=== PATIENT | female | born 1965 | race Caucasian/White ===

== ENCOUNTER 2018-07-20 10:24 | Emergency (ER) | payer MEDICAID, SELFPAY ==
--- NOTE | 2018-07-20 10:32 | DI.RAD_ITS ---
SYMPTOM/DIAGNOSIS: COUGH X 1 WEEK PA AND LATERAL CHEST: Comparison is made with 01 Apr 2014. The heart size is normal. The lungs appear clear. No infiltrate or effusion is seen. IMPRESSION: Negative chest x-ray.
[2018-07-20 10:35] VITALS: BP 154/83; PULSE 81; RESP 16; TEMP 37; O2SAT 99
[2018-07-20 10:39] VITALS: RESP 1
[2018-07-20] MEDS: Albuterol/Ipratropium 3 ML UPD VIAL UPD (10:39)
--- NOTE | 2018-07-20 10:40 | ED.GENADUL_ITS ---
Discharge Plan Disposition Patient Disposition: HOME Condition: Good Discharge Details Chief Complaint: RespSymp Clinical Impression: Cough, URI (upper respiratory infection) Primary Care Provider: Ying Villaseñor ED Provider: Jamie Shen Home Meds and New Rx's Prescriptions: New albuterol sulfate 90 mcg/actuation HFA aerosol inhaler 1 puff IH Q6H PRN (Reason: shortness of breath or wheezing) Qty: 8 RF: 0 benzonatate [Tessalon Perles] 100 mg capsule 100 mg PO TID PRN (Reason: cough) Qty: 20 RF: 0 prednisone 50 MG tablet 50 mg PO DAILY Qty: 5 RF: 0 No Action Mirena 1 EACH intrauterine device 1 ea Intrauterine ONCE Qty: 1 RF: 0 mometasone [Nasonex] 17 GM spray,non-aerosol 2 spry NS DAILY RF: 0 Discharge Instructions Instructions: Upper Respiratory Infection (ED), Acute Cough (ED) Additional Instructions: Please take the medication as directed. If you notice any worsening of your symptoms, or any new symptoms such as vomiting, diarrhea, fever, chills, shortness of breath, chest pain, numbness, weakness, or fainting , please return immediately to the emergency department for reevaluation. Please follow up with your primary care provider as soon as possible for reassessment and r eevaluation. As always, it was a pleasure participating in your medical care today. Referrals: Ying Villaseñor MD [Primary Care Provider] - Medical Decision Making This is a 53-year-old female with no significant past medical history who presents today for evaluation of cough for the last week. She has no productive sputum at this time. No fever or chills. She does feel slightly fatigued though. No history of significant tobacco use. Physical exam demonstrates no wheezes or rhonchi. With the patient's persisting cough for the last week we will get a chest x-ray to rule out any focal pneumonia. We will give a breathing treatment to see if this improves her symptoms. With reassuring vital signs, no other significant abnormalities on exam I feel that she would be a good candidate for home therapy. I feel her symptoms are most likely secondary to bronchitis from a viral upper respiratory infection. Currently there are no signs or symptoms that clinically correlate with a acute cardiac etiology, aortic dissection, pulmonary embolism, or severe respiratory compromise. 11:19 AM Patient's x-ray shows no evidence of significant pneumonia. Patient feels significantly improved after breathing treatment. I feel there is a component of bronchitis with reactive airway. Patient will be given an inhaler for home use with steroids. With no evidence of focal pneumonia, reassuring vital signs and no fever do not think antibiotics are indicated at this time. I have extensively reviewed the treatment plan and discharge instructions with the patient. I have addressed all patient concerns at this time. The patient was made aware of what symptoms to monitor for that would warrant a return to the emergency department. Discussed the plan with the patient, they demonstrate verbal understanding and agreement with our assessment and plan at this time. HPI General Date/Time Provider Initiated Documentation: 07/20/18 10:32 . HPI Narrative: This is a 53-year-old female with no significant past medical history who presents today for evaluation of cough. For the last week the patient has had a cough that is been nonproductive. 6 days ago she had a mild fever however this resolved on its own. She had some productive yellow sputum at that time but now her cough is nonproductive. She denies any significant chest pain, chest pressure, significant shortness of breath, and arm pain, neck pain, or shoulder pain. She denies any pleuritic chest pain. She has no history of tobacco use. She denies any history of cardiac disease. Denies PE risk factors such as recent long car rides, immobilization, recent surgery, prior history of DVT or PE, family history of PE or DVT, morbid obesity, smoking, hemoptysis, history of cancer. She has not upon been on any antibiotics recently. She has no other complaints at this time. Related Data Home Medications Medication Instructions Recorded Confirmed Mirena 1 ea INTRAUTERINE ONCE #1 implant 05/04/14 07/20/18 mometasone [Nasonex] 2 spry NS DAILY spray 05/04/14 07/20/18 albuterol sulfate 1 puff IH Q6H PRN #8 gm 07/20/18 benzonatate [Tessalon Perles] 100 mg PO TID PRN #20 cap 07/20/18 prednisone 50 mg PO DAILY #5 tab 07/20/18 Previous Rx's Medication Instructions Recorded albuterol sulfate 1 puff IH Q6H PRN #8 gm 07/20/18 benzonatate [Tessalon Perles] 100 mg PO TID PRN #20 cap 07/20/18 prednisone 50 mg PO DAILY #5 tab 07/20/18 Allergies Allergy/AdvReac Type Severity Reaction Status Date / Time No Known Allergies Allergy Unverified 07/20/18 10:36 Review of Systems Review of Systems All systems reviewed & are unremarkable except as noted in HPI and below PFSH Social History Smoking/Tobacco Use Status: Never Exam Narrative Exam Narrative: 1.Const: Well-nourished, Well-developed, appearing stated age 2.Eyes: PERRL, no conjunctival injection, and symmetrical lids. 3.ENT: Atraumatic external nose and ears. Moist MM. Neck: Symmetric, trachea midline, No thyromegaly. 4.CVS: +S1/S2, No murmurs or gallops. Peripheral pulses 2+ and equal in all extremities. Brisk capillary refill in all extremities. 5.RESP: Unlabored respiratory effort. Clear to auscultation bilaterally. No wheezes rales or rhonchi 6.GI: Soft, Nontender/Nondistended, No hepatosplenomegaly. No guarding or rebound. 7.MSK: Normocephalic/Atraumatic, Extremities w/o deformity or ttp No cyanosis or clubbing, Normal movement of all extremities. No calf swelling or tenderness. 8.Skin: Warm, Dry. No rashes or lesions. 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 Sensation grossly intact, no focal neurologic deficits. 10.Psych: (AAO) x3. Appropriate mood and affect
[2018-07-20 11:09] VITALS: RESP 1
--- NOTE | 2018-07-20 11:19 | DI.VRAD_ITS ---
EXAM: XR Chest, 2 Views EXAM DATE/TIME: 07/20/2018 10:57 AM CLINICAL HISTORY: 53 years old, female; Signs and symptoms; Cough; Patient HX: Cough x 1 wk TECHNIQUE: XR of the chest, 2 views. COMPARISON: CR CHEST 2 VIEWS PA,LAT 04/01/2014 8:22 AM FINDINGS: Lungs: Unremarkable. No consolidation. Pleural space: Unremarkable. No pleural effusion. No pneumothorax. Heart/Mediastinum: Unremarkable. No cardiomegaly. Bones/joints: Unremarkable. IMPRESSION: No acute findings. Dictated and Authenticated by: Meme Woodard MD. Ordering:MATTI Ayala MD
== END 2018-07-20 11:31 | disposition home or self-care (01) ==
PROVIDERS: Emergency Provider Student in an Organized Health Care Education/Training Program; PCP Family Medicine
DX: R05 Cough (principal); J06.9 Acute upper respiratory infection, unspecified
CPT/HCPCS: 94640; 99283; 71046; J7620

== ENCOUNTER 2018-09-13 10:50 | Outpatient (CLI) | payer MEDICAID, SELFPAY ==
--- NOTE | 2018-09-13 14:29 | DI.RAD_ITS ---
SYMPTOMS/DIAGNOSIS: RIGHT KNEE PAIN, M25.561, H/O PATELLA AND TIB-FIB FRACTURE IN 1999 WITH KNOWN HARDWARE IN PLACE, PAIN X 6 MOS RIGHT KNEE: Three views. No priors for comparison. There are sideplate and screws seen in the proximal tibia. No evidence of an acute fracture or dislocation is seen. There is moderate narrowing of the lateral tibiofemoral joint space with periarticular spurring present. Mild periarticular spurring is seen in the posterior patella. The soft tissues are unremarkable. IMPRESSION: 1. Moderate degenerative changes of the right knee. 2. No acute fracture or dislocation.
== END 2018-09-13 11:10 ==
PROVIDERS: PCP Family Medicine; Visit Provider Family Medicine
DX: M25.561 Pain in right knee (principal); M17.11 Unilateral primary osteoarthritis, right knee; Z87.81 Personal history of (healed) traumatic fracture
CPT/HCPCS: 73562

== ENCOUNTER 2018-10-23 09:34 | Outpatient (CLI) | payer MEDICAID, SELFPAY ==
--- NOTE | 2018-10-23 09:30 | DI.RAD_ITS ---
SYMPTOMS/DIAGNOSIS: RIGHT KNEE PAIN LEG LENGTH STUDY: The left leg measures 89 cm, the right leg 88 cm. A plate and screw device is affixed to the proximal right tibia and degenerative changes involving the knee are apparent. A genu varus deformity is evident.
== END 2018-10-23 09:54 ==
PROVIDERS: PCP Family Medicine; Visit Provider Physician Assistant
DX: M25.561 Pain in right knee (principal); M17.11 Unilateral primary osteoarthritis, right knee; M21.161 Varus deformity, not elsewhere classified, right knee
CPT/HCPCS: 77073

== ENCOUNTER 2018-11-04 00:41 | Outpatient (CLI) | payer MEDICAID, SELFPAY ==
--- NOTE | 2018-11-04 09:55 | DI.MAMMO_ITS ---
SYMPTOM/DIAGNOSIS: SCREENING, Z12.31 MAMMOGRAMS: Mammograms were interpreted according to the usual protocol including computer analysis with CAD system, tomosynthesis and C view imaging. Comparison is made with prior examinations. Breast density, Category B. The patient has had a prior right breast biopsy. No suspicious masses or microcalcifications are seen. The skin and axilla are unremarkable. IMPRESSION: No evidence for malignancy. Yearly mammography is recommended. Category 1. MQSA ASSESSMENT OF FINDINGS: Negative. Category 1. Patient will receive a letter notifying them of these results. BI-RADS category B. There are scattered areas of fibroglandular density.
== END 2018-11-04 01:01 ==
PROVIDERS: PCP Family Medicine; Visit Provider Family Medicine
DX: Z12.31 Encounter for screening mammogram for malignant neoplasm of breast (principal)
CPT/HCPCS: 77063; 77067

== ENCOUNTER 2018-11-28 12:44 | Outpatient (CLI) | payer MEDICAID, SELFPAY ==
[2018-11-28 13:36] LABS: HCT 40.2 % (36.0-46.0); HGB 13.2 g/dL (12.0-15.5); Mean Corp. HGB Concentration 32.8 g/dL (32.0-36.0); Mean Corpuscular Hemoglobin 31.5 pg (27.0-33.0); Mean Corpuscular Volume 95.9 fL (80-95); Mean Platelet Volume 9.5 fL (8.0-11.0); Platelet Count 233 x1000/uL (130-400); RBC 4.19 m/cumm (4.00-5.20); RBC Distribution Width 12.6 % (11.7-14.6); White Blood Cell Count 5.53 k/cumm (4.4-10.8)
[2018-11-28 14:18] LABS: Anion Gap 9.8 mmol/L (3-11); BUN 12 mg/dL (7-18); CO2 28.2 mmol/L (21.0-32.0); CREATININE 0.74 mg/dL (0.55-1.02); Calcium 9.6 mg/dL (8.5-10.1); Chloride 104 mmol/L (98-107); Glucose 88 mg/dL (70-100); Potassium 4.1 mmol/L (3.5-5.1); Sodium 142 mmol/L (136-145)
--- NOTE | 2018-11-28 17:41 | W.PREOPHP ---
Documented by User: BASSAM Patel 11/28/18 18:41 Date of service: 11/28/18 Time of Service: 12:42 Assessment and Plan (1) Post-traumatic osteoarthritis of left knee: Current visit: No Status: Deleted right knee posttraumatic OA. Patient is an most common complications as well as the measures used to ameliorate these complications. She is shown the prosthetic components and dispensed Dr. Morales's information booklet guide to total knee replacement with the high points reviewed. All questions were answered to her satisfaction With respect to her medical history he has a very benign medical history only having a work-up for palpitations in 2017 where she is found to have rare single PACs and frequent single PVCs with no SVT or A. fib. She relates that she relates that sensation of palpitation has all resolved at this time and she has not had any of these frequently and there were never associated with any chest pain. She was dispensed an albuterol inhaler and a viral URI this past winter but discontinued this after very brief use and is not currently currently using the inhaler. History of Present Illness Chief Complaint: right knee pain Narrative: keven is a 53-year-old female who presented recently to Dr. 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 She has a past history of a fall off deck in January 2000 sustaining a tibial plateau fracture treated by a lateral plate ORIF by Dr. Mihaela ELIZALDE. Her long history of valgus deformity with increasing weightbearing pain prompted her to seek a permanent solution to her problem at a relatively young age of 53 as a friend/relative had problems with a total knee replacement done elsewhere at the age of 68. Keven has had x-rays with significant femoral-tibial lateral compartment narrowing with periarticular spurring and subchondral sclerosis formation. Total knee arthroplasty was offered as a long-term permanent solution rather than injective therapy and off warehouse unloader brace trial. Pertinent Surgical Information Denies previous medical history of: stroke, TIA, [place], use of sublingual nitroglycerin, GERD, seizures, diabetes, thyroid disease, sleep apnea, liver disease, hepatitis, hematologic disorders Denies previous complications from surgery or anesthesic agents with respect to high fever, prolonged vomiting and difficulty waking up Review of Systems Constitutional Denies fever(s) and Denies headache(s) ENT Denies headache(s), Denies nasal congestion, Denies nasal discharge and Denies sore throat Cardiovascular Denies chest pain, Denies chest pain with activity, Denies palpitations, Denies dyspnea on exertion, Denies orthopnea and Denies paroxysmal nocturnal dyspnea Respiratory Denies cough, Denies excessive phlegm production, Denies pain on inspiration, Denies dyspnea on exertion and Denies wheezing Gastrointestinal Denies abdominal pain, Denies melena, Denies hematochezia, Denies nausea and Denies vomiting Genitourinary Denies hematuria, Denies urinary frequency and Denies dysuria Comments: Denies burning sensation with urination Musculoskeletal Reports as per HPI Neurologic Denies headache(s) Psychiatric Denies anxiety and Denies depression Endocrine Denies palpitations Comments: Denies any unplanned weight changes Allergic/Immunologic Denies wheezing PFSH Medical History Family history of breast cancer (Acute) Frequent PVCs (Resolved) Surgical History History of open reduction and internal fixation (ORIF) procedure (Chronic) History of breast cancer (Resolved) Social History Smoking/Tobacco Use Status: Never Alcohol Intake: current Details: ocas social Drug use: Never What type of physical activity do you participate in: walking and additional Details: gardening,4 wheeling Do you feel safe in your relationship?: Yes Meds Home Medications Medication Instructions Recorded Confirmed Type mometasone [Nasonex] 2 spry NS DAILY PRN spray 05/04/14 11/28/18 History Allergies Allergy/AdvReac Type Severity Reaction Status Date / Time No Known Allergies Allergy Unverified 11/28/18 12:58 Exam Const General: cooperative HENMT Throat: posterior oropharynx normal Eyes General: appearance normal, both eyes and all related structures Conjunctivae: conjunctivae normal Sclera: sclerae normal Neck Neck: no JVD Carotids: normal carotid upstroke and no bruits Resp Effort & Inspection: normal respiratory effort and able to speak in complete sentences Auscultation: clear to auscultation bilaterally, no rales, no rhonchi and no wheezes Cardio Rate: regular rate Heart Sounds: S1 normal, S2 normal and no murmurs Bruits: no abdominal aortic bruits Pulses: normal peripheral pulses Other: No pulsatile mass noted with palpation over the abdominal aorta GI Palpation: soft and no hepatosplenomegaly Auscultation: normal bowel sounds General: No CVA tenderness Extrem General: no pedal edema Other: rght knee shows significant valgus deformity with healed scar laterally from prior tibial plateau orif.thereis no effusion with full extension with flexion intact to 110degrees with lateral collateral laxity. Results Labs : 11/28/18 13:25 11/28/18 13:25 Laboratory Results - last 24 hr 11/28/18 11/28/18 13:25 13:25 WBC 5.53 RBC 4.19 Hgb 13.2 Hct 40.2 MCV 95.9 H MCH 31.5 MCHC 32.8 RDW 12.6 Plt Count 233 MPV 9.5 Sodium 142 Potassium 4.1 Chloride 104 Carbon Dioxide 28.2 Anion Gap 9.8 BUN 12 Creatinine 0.74 Estimated GFR/1.73 m2 >= 60.00 Glucose 88 Calcium 9.6 Documented by User: Aron Morales MD 12/01/18 20:33 PFSH Medical History Family history of breast cancer (Acute) Frequent PVCs (Resolved) Surgical History History of open reduction and internal fixation (ORIF) procedure (Chronic) History of breast cancer (Resolved) Social History Smoking/Tobacco Use Status: Never Alcohol Intake: current Details: ocas social Drug use: Never What type of physical activity do you participate in: walking and additional Details: gardening,4 wheeling Do you feel safe in your relationship?: Yes Meds Home Medications Medication Instructions Recorded Confirmed Type mometasone [Nasonex] 2 spry NS DAILY PRN spray 05/04/14 11/28/18 History Allergies Allergy/AdvReac Type Severity Reaction Status Date / Time No Known Allergies Allergy Unverified 11/28/18 12:58 Results Labs : 11/28/18 13:25 11/28/18 13:25
== END 2018-11-28 13:04 ==
PROVIDERS: PCP Family Medicine; Visit Provider Student in an Organized Health Care Education/Training Program
DX: M25.561 Pain in right knee (principal); M17.11 Unilateral primary osteoarthritis, right knee; Z01.818 Encounter for other preprocedural examination
CPT/HCPCS: 36415; 80048; 85027

== ENCOUNTER 2018-12-05 08:23 | Inpatient (IN) | payer MEDICAID, SELFPAY ==
[2018-11-28 13:03] VITALS: BP 157/90; PULSE 69; RESP 16; TEMP 36.9; O2SAT 99
[2018-11-28 13:07] VITALS: BP 157/90; PULSE 69; RESP 16; TEMP 36.9; O2SAT 99
[2018-12-05] VITALS (10 sets, daily range): BP systolic 88–133; BP diastolic 45–100; PULSE 58–71; RESP 12–18; TEMP 35.4–36.8; O2SAT 94–99
[2018-12-05] MEDS: Lactated Ringers 1,000 ML 80 ML IV ×3 (09:05→16:23)
[2018-12-05] MEDS: Acetaminophen 500 MG TAB 1000 MG PO ×3 (09:28→21:15)
[2018-12-05] MEDS: Celecoxib 200 MG CAP 400 MG PO (09:29)
[2018-12-05] MEDS: Gabapentin 300 MG CAP PO ×2 (09:30→21:17)
[2018-12-05] MEDS: oxyCODONE-CR 10 MG TABCR PO (09:30)
[2018-12-05] MEDS: Midazolam 2 MG/2 ML VIAL (10:00)
[2018-12-05] MEDS: Bupivacaine 0.25% Pres-Free 10 ML VIAL (10:00)
[2018-12-05] MEDS: Bupivacaine LIPOSOME/PF 133 MG/10 ML VIAL IJ ×2 (10:00→13:00)
[2018-12-05] MEDS: ceFAZolin 2 GM/50 ML BAG IVPB (11:24)
[2018-12-05] MEDS: Normal Saline 50 ML (13:00)
[2018-12-05] MEDS: Bupivacaine 0.25% Pres-Free 30 ML VIAL (13:00)
[2018-12-05] MEDS: Ketorolac 30 MG/ML VIAL (13:00)
--- NOTE | 2018-12-05 16:50 | PT.INIE ---
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 Owns her own home in her bedroom and bathroom is on a second floor, but she can convert a room or sleeping on the first floor. She has 12 steps leading to the second floor. She is a walking shower, with a seat. No flexible shower hose but she does have grab bars. Current Functional Limitations: Prior to surgery she was independent with all ADLs, including her housework, taking care of her grandchildren, working part-time, etc. Currently will require assistance with most ADLs Equipment Owned/DME: Crutches Subjective: Complains of some lightheadedness with minimal anterior right knee discomfort. Objective: [] General Observation: Mildly lethargic, pleasant in no abnormal pain behavior noted. Resting comfortably in bed with her leg elevated and a Cryo/Cuff on her right knee. She complained of lightheadedness while walking and laying in bed, but this resolved once I lower the head of the bed. No complaints of nausea Mental Status: Oriented x3 Pain: Mild discomfort throughout the anterior aspect of the right knee especially with end range knee flexion Vital Signs: Pulse is regular and 72 bpm following ambulation ROM: Her joint mobility is within functional limits without pain on movement other than her right knee which is 0 to 70 degrees with some mild end range drawing throughout the anterior aspect the knee with flexion. Strength: Has full motor control throughout and strength generally rated 5/5 other than her right lower extremity. She is able to form a supine straight leg raise on the right along with ankle pumping. Sensation: Intact to light touch throughout the digits of the right foot Bed Mobility/Transfers: Requires minimal assistance with her right lower extremity when assuming the supine to sitting positions and vice versa. She is independent with assuming a sitting to standing positions. Gait: Ambulated approximately 20 feet with a wheeled walker and minimal contact guarding with a stable gait, weightbearing as tolerated on the right lower extremity. Balance: [] Static Sitting: Normal Dynamic Sitting: Normal Static Standing: Good Dynamic Standing: Required mild contact guarding Special Tests: Mobility Limitations Standardized Measure [facility] AM-PAC 6 clicks Basic Mobility Inpatient Short Form: Raw Score: 18 standardized Score: 43.63 CMS Score: 46.58 CMS Modifier: CK Informed Consent/Education: Patient instructed in purpose of PT consult and plan of care. Assessment: Patient is a 53 year old female referred to physical therapy services with the diagnosis of status post right total knee arthroplasty. Patient presents with clinical signs and symptoms consistent with diagnosis, as demonstrated by the following impairment level findings: Minimal assistance with her bed mobility, and standby supervision with minimal contact guarding when ambulating.. Patient is assessed as a Low 17609 complexity based on the following: History: See comorbidities and social history Examination: See above for functional limitations and impairments Presentation: Stable Decision Making: Low complexity based on her clinical findings Goals: Goals X1 week 1. Supine-Sit independent 2. Sit-Supine independen Gait ambulation with crutches three-point gait weightbearing as tolerated for greater than 50 feet Stairs independently stairclimbing with a railing and crutches Independent with home exercise program Plan of Care/Treatment Plan: Today's session consisted of the evaluation, patient education, mobilizing the patient with her bed mobility activities along with ambulation with a wheeled walker for 20 feet with weightbearing as tolerated in the right lower extremity. She was instructed in hourly quad and gluteal sets and ankle pumping. She will be seen tomorrow a.m. for crutch training, three-point gait, weightbearing as tolerated in the right lower extremity. She will also be instructed in stair climbing. Plan of care has been reviewed with the PLAYGROUND WORKER providing the service under Physical Therapy direction. DISCHARGE RECOMMENDATIONS: Home TREATMENT CODE/TIME: 9716 45 minutes/3:45-4:30PM
--- NOTE | 2018-12-05 17:07 | IN_ITS ---
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 Owns her own home in her bedroom and bathroom is on a second floor, but she can convert a room or sleeping on the first floor. She has 12 steps leading to the second floor. She is a walking shower, with a seat. No flexible shower hose but she does have grab bars. Current Functional Limitations: Prior to surgery she was independent with all ADLs, including her housework, taking care of her grandchildren, working part- time, etc. Currently will require assistance with most ADLs Equipment Owned/DME: Crutches Subjective: Complains of some lightheadedness with minimal anterior right knee discomfort. Objective: [] General Observation: Mildly lethargic, pleasant in no abnormal pain behavior noted. Resting comfortably in bed with her leg elevated and a Cryo/Cuff on her right knee. She complained of lightheadedness while walking and laying in bed, but this resolved once I lower the head of the bed. No complaints of nausea Mental Status: Oriented x3 Pain: Mild discomfort throughout the anterior aspect of the right knee especially with end range knee flexion Vital Signs: Pulse is regular and 72 bpm following ambulation ROM: Her joint mobility is within functional limits without pain on movement other than her right knee which is 0 to 70 degrees with some mild end range drawing throughout the anterior aspect the knee with flexion. Strength: Has full motor control throughout and strength generally rated 5/5 other than her right lower extremity. She is able to form a supine straight leg raise on the right along with ankle pumping. Sensation: Intact to light touch throughout the digits of the right foot Bed Mobility/Transfers: Requires minimal assistance with her right lower extremity when assuming the supine to sitting positions and vice versa. She is independent with assuming a sitting to standing positions. Gait: Ambulated approximately 20 feet with a wheeled walker and minimal contact guarding with a stable gait, weightbearing as tolerated on the right lower extremity. Balance: [] Static Sitting: Normal Dynamic Sitting: Normal Static Standing: Good Dynamic Standing: Required mild contact guarding Special Tests: Mobility Limitations Standardized Measure [facility] AM-PAC 6 clicks Basic Mobility Inpatient Short Form: Raw Score: 18 standardized Score: 43.63 CMS Score: 46.58 CMS Modifier: CK Informed Consent/Education: Patient instructed in purpose of PT consult and plan of care. Assessment: Patient is a 53 year old female referred to physical therapy services with the diagnosis of status post right total knee arthroplasty. Patient presents with clinical signs and symptoms consistent with diagnosis, as demonstrated by the following impairment level findings: Minimal assistance with her bed mobility, and standby supervision with minimal contact guarding when ambulating.. Patient is assessed as a Low 79623 complexity based on the following: History: See comorbidities and social history Examination: See above for functional limitations and impairments Presentation: Stable Decision Making: Low complexity based on her clinical findings Goals: Goals X1 week 1. Supine-Sit independent 2. Sit-Supine independen Gait ambulation with crutches three-point gait weightbearing as tolerated for greater than 50 feet Stairs independently stairclimbing with a railing and crutches Independent with home exercise program Plan of Care/Treatment Plan: Today's session consisted of the evaluation, patient education, mobilizing the patient with her bed mobility activities along with ambulation with a wheeled walker for 20 feet with weightbearing as tolerated in the right lower extremity. She was instructed in hourly quad and gluteal sets and ankle pumping. She will be seen tomorrow a.m. for crutch training, three-point gait, weightbearing as tolerated in the right lower extremity. She will also be instructed in stair climbing. Plan of care has been reviewed with the ENTRY LEVEL MECHANICAL ENGINEER providing the service under Physical Therapy direction. DISCHARGE RECOMMENDATIONS: Home TREATMENT CODE/TIME: 9716 45 minutes/3:45-4:30PM
--- NOTE | 2018-12-05 17:44 | NUR.NOTE ---
14:30 Pt transferred from PACU to rm [id number] via stretcher, report given from RN Henrietta. Slide pt to bed with hover mat with out difficulty. PT called to come see pt per Dr. Morales. A&O x4, rates right leg pain 1/10, cyro cuff on and medicated with 1000mg sched tylenol. Educated on IS states understanding, call esparza with in reach.
[2018-12-05] MEDS: oxyCODONE 5 MG TAB PO (21:15)
[2018-12-05] MEDS: Celecoxib 200 MG CAP PO (21:15)
[2018-12-05] MEDS: Aspirin E.C. 81 MG TABEC PO (21:16)
[2018-12-06 03:20] VITALS: BP 128/81; PULSE 60; RESP 18; TEMP 36.6; O2SAT 98
[2018-12-06] MEDS: oxyCODONE 5 MG TAB PO ×3 (03:29→12:02)
[2018-12-06] MEDS: Lactated Ringers 1,000 ML 80 ML IV (03:31)
--- NOTE | 2018-12-06 06:00 | W.PM.OP ---
Date of service: 12/05/18 Time of Service: 15:00 Operative Note DATE OF PROCEDURE: 12/05/18 PRE-OP DIAGNOSIS: Right Knee posttraumatic arthritis POST-OP DIAGNOSIS: same PROCEDURE: Right Total Knee Arthroplasty with Intraoperative Navigation and removal of hardware SURGEON: Aron Morales CHILDHOOD DEVELOPMENT TEACHER: Alison Jimenez ANESTHESIA: regional and spinal ESTIMATED BLOOD LOSS: 200 PATHOLOGY: none sent TOURNIQUET TIME: 36 COMPLICATIONS: None Patient was transported to: PACU Patient's condition: stable Implants: 1. Depuy Attune Posterior Stabilized Femoral Component, Size 5 narrow 2. Depuy Attune Fixed Platform Tibial Component, Size 3 3. Depuy Attune 5 x 7 mm fixed, Stabilized Poly 4. Depuy Attune Patellar Component, Size 32 mm Indications: I have seen Dorene in clinic for symptoms of knee arthritis, confirmed with radiographic findings. Dorene has exhausted nonoperative methods and was having significant limitations in daily function and desired better function and less pain. I discussed the technical details of a knee replacement. I explained the risks of the procedure to include, but not limited to, bleeding, infection, pain, stiffness, fracture, damage to nerves and vessels, damage to muscles and tendons, loosening, need for repeat procedure, blood clot and cardiopulmonary demise. Despite these risks, Dorene elected to proceed. Findings: The previously placed anterior lateral tibial plate and screws were removed without any notable difficulty. The screw holes were curetted and the bone quality seem to be excellent. There was significant signs of arthritis throughout the knee. There was excessive posterior slope and significant irregularity of the lateral tibial joint surface, especially posteriorly. Procedure Description: Dorene was greeted in the preoperative holding area where the correct side was identified and marked. The consent was reviewed with the patient and signed. The history and physical was updated. All questions were answered. Preoperative mediacations were administered: Acetaminophen 1000mg, Celebrex 400mg, Gabapentin 300mg, and Oxycontin 10mg. An adductor canal block was then administered by the anesthesia team in the PACU. Dorene was taken back to the operating room. A spinal anesthestic was then administered. The patient was placed into the supine position on the operating room table. A nonsterile tourniquet was placed high onto the leg but only used for cementing. Posts were placed for positioning during the procedure. All bony prominences were well padded. Prophylactic antibiotics in the form of cefazolin were administered. 1g of Tranxemic Acid was given intravenously within 30 minutes of incision. The right leg was then prepped with Chloraprep and draped in a standard fashion with impervious stockinette and extremity drape with Iodine impregnated skin protection. A timeout to confirm correct identity, side and site, procedure, allergies, anesthesia, and medical concerns was performed. The previous lateral, proximal leg incision was utilized. This incision was then gently curved superiorly around to the midline of the thigh forming a gentle sweeping C incision. Full thickness skin flaps were raised once the extensor mechanism was encountered. These were raised medially and laterally. Any bleeding was controlled with electrocautery. The proximal portion of the plate was palpable. Starting 5 or 7 mm off the crest of the tibia I then incised the fascia of the anterior compartment of the leg. The plate was easily identifiable and this tissue was taken down to the level of the plate. Using alonso elevators and sharp dissection I was able to expose the plate. The screws were able to be removed without difficulty and with no sign of acute loosening. After the screws remove the plate was removed as well. Curettes were used to debride the screw holes. The bone appeared to be of good quality without any soft spots or signs of significant bone deterioration. The wound was then thoroughly irrigated. The anterior fascia of the leg was closed with a #1 Vicryl. Once the extensor mechanism was fully exposed, a medial parapatellar arthrotomy was performed in a flexed position. All bleeding from the arthrotomy and the geniculate arteries was coagulated. A medial subperiosteal peel was performed with electrocautery to the midcoronal plane. The fat pad was removed while keeping the patellar tendon protected. The anterior distal femur synovium was removed for later visualization. The ACL and PCL were resected and the anterior horn of the lateral meniscus was transected. The knee was then flexed with the patella everted. Large osteophytes from the tibia were removed. Large osteophytes from the femur were removed. There was scarring and irregularity within the lateral compartment area the lateral tibial plateau had a notable central depression as well as a significant sloping posterior deficit. The entire plateau appeared to be sloping posteriorly more than typical. A single starting pin was then placed 1cm anterior to the PCL insertion and the notch in the direction of the femoral head. The OrthoAlign device was applied over the pin. It was oriented to be in line with the epicondylar axis and the trochlear groove. It was then pinned into place. The navigation computer was then turned on and calibrated. The distal femur cut was set at 0 degrees varus/valgus and 2.5 degrees flexion. The distal femur cutting guide then was positioned for a 9mm cut. The distal femur was cut with an oscillating saw while protecting the soft tissues. The tibia was then addressed. The OrthoAlign device was placed over the tibial tubercle and medial tibia and secured into position. Once again, OrthoAlign was calibrated and then set for a 0 degree varus/valgus cut and 3 degrees of posterior slope. With this locked into position, the cut thickness stylus was used to assess cut thickness. The lateral side, most involved side, was set for a 2mm cut at its lowest point. This was then held in position and pinned into place with 2 additional pins and a cross pin for stability. The medial and lateral collateral ligaments were protected and the cut was performed. With this completed, it was assessed and noted to be of appropriate dimensions. The guide and OrthoAlign was removed. A spacer block was inserted and the knee was brought into extension. The 6mm spacer block provided full extension, without hyperextension and with stability of both the medial and lateral collateral ligaments was assessed. The pins from the femur and the tibia were then removed. The distal femur was then sized. The anterior stylus was placed onto the lateral ridge of the anterior femur. This indicated a size 5 narrow femur. The external rotation of the guide was adjusted to match the epicondylar axis, perpendicular to [place]?s line. The 4-in-1 cutting guide was the placed. The posterior medial femur cut was evaluated and appeared of good thickness. The spacer block was inserted underneath the cutting guide and stability was confirmed in 90 degrees of flexion. An jalen wing was used to confirm appropriate position of the anterior cut to avoid notching. This cutting guide was ensured to be flush on the cut surface and then pinned into place with headed pins. While protecting the soft tissues, quad tendon, and collateral ligaments, the anterior and posterior cuts were performed with a saw. The central two pins were removed and the posterior and anterior chamfers were cut next. The notch-cutting guide was placed. This was pinned to lateralize the femoral component as much as possible while keeping it flush on the cut surface. This was then pinned into position. A reciprocating saw was used to make the notch cut. A rasp smoothed the cut surfaces. A trial posterior stabilized femoral component was then inserted, impacted down to the cut surfaces, and the lug holes were drilled. A provisional trial tibial component was placed and the knee was brought through range of motion. There was noted to be excellent extension and flexion. There was no significant instability. The patella was tracking without thumbs. The tibial cut surface was fully exposed. The medial and lateral menisci were removed. The tibia was then sized as a 3. The tibia had been previously marked during trialing to correspond to the center of the tibial component to help with rotation. The trial was aligned to this echo, approximately rotated to the medial 1/3rd of the tibial tubercle. The trial was pinned into place. The tibia was prepared with a reamer and a keel punch. The knee was then brought into extension and the patella was measured as 25 mm. Using the patellar clamp and cut guide, this was resected to a flat surface with at least 13mm of thickness remaining. The size 32 patella fit the best. This was oriented and then clamped into position. The lugs were drilled. The trial components were removed. The final components, except for the polyethylene were opened on the back table. The periosteal and capsular tissues, especially posteriorly, around the knee were then systematically injected with a periarticular cocktail consisting of 50cc 0.25% Marcaine, 30mg Ketorolac, 20cc of Exparal and 50cc of injectable saline. The tourniquet was then inflated to 275mmHg. The knee was thoroughly irrigated with a pulse lavage and dried. On the back table, with the implants opened, the cement was mixed. 2 batches of antibiotic laden cement were prepared with vacuum assistance. After the cement was ready a small amount was placed on to the back side of the tibial component at the keel. A small amount was placed onto the posterior flange of the femur. Cement was manual pressurized and impregnated into the cut surface of the tibia. The tibial component was then inserted into the cut surface and impacted into position. Excess cement was removed and the component was reimpacted. Again, excess cement was removed and our attention was then turned to the femur. The femoral cut surface was once again dried and cement was manually impacted into the cut surface. The femoral component was lined with the lug holes and impacted. Excess cement was removed. It was ensured to be down against the cut surface. The trial polyethylene was then inserted and the leg was brought out into full extension for the duration of the cement curing process, approximately 15min. Cement was lastly manually impacted into the cut surface of the patella and the patellar button was clamped into position and held. During this process attention was turned to the gutters of the knee and for all interfaces for any excess cement. After the cement had finally cured, approximately 15min, the clamp was removed from the patella and the knee was taken through range of motion. A size 7 mm polyethylene component provided the best range of motion and stability with less than 2mm gapping with medial and lateral stress and full extension without significant hyperextension. The patella was tracking with a no-thumbs technique. The trial poly was removed and once again the knee was checked for any loose, excess, or errant cement. The poly component was then inserted and impacted into position after cleaning and drying the tibial tray. The capsule was then reapproximated with a No. 1 Vicryl at multiple locations. The capsule was finally closed with a No. 2 Stratafix, barbed suture. The tourniquet was then released and the arthrotomy appeared watertight without significant bleeding. The second dosing of 1g TXA was started. Deep tissues were then reapproximated with 0 Vicryl and 2-0 Vicryl. The skin was closed with a running 3-0 Monocryl in a subcuticular fashion. This was reinforced with skin glue. A Mepilex silver dressing was applied along with a [id number] CHENG wrap. A CryoCuff was applied. Dorene was transferred to the hospital bed without difficulty an suffering no apparent complication. Dorene has a good prognosis. Physical therapy will start today and without restrictions, weight-bearing as tolerated. Aspirin 81mg BID will be used for DVT prophylaxis.
[2018-12-06 07:20] VITALS: BP 144/85; PULSE 63; RESP 14; TEMP 36.5; O2SAT 97
[2018-12-06] MEDS: Celecoxib 200 MG CAP PO (07:51)
[2018-12-06] MEDS: Aspirin E.C. 81 MG TABEC PO (07:52)
[2018-12-06] MEDS: Acetaminophen 500 MG TAB 1000 MG PO (07:52)
--- NOTE | 2018-12-06 08:24 | INITIAL_ITS ---
Care Management Initial Assess REASON FOR HOSPITALIZATION:: R Knee DJD PAST MEDICAL HISTORY/PAST SURGICAL HISTORY:: Family hx of breast cancer, open reduction and internal fixation (ORIF), frequent PVCs, colonoscopy. PREVIOUS FUNCTIONAL STATUS/SOCIAL/FAMILY SUPPORTS:: Dorene resides with her Hao willingham in [place], [place]. She reports an active life with four children and ten grandchildren all who live nearby and are close and supportive. She reports completing the planting of her garden yesterday, with the help of her daughter, and is confident she will have the support she needs to safely recover at home. 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 CURRENT FUNCTIONAL STATUS:: Dorene is lying in bed, pleasant in interaction and forthcoming with information. ADVANCE DIRECTIVES:: None on file. Has patient been provided with information about the portal?: Yes Did the patient sign up for the portal?: No CODE STATUS:: Full Code INSURANCE COVERAGE / FINANCIAL ISSUES:: Medicaid CURRENT HOME/COMMUNITY SERVICES/EQUIPMENT:: No current services or equipment. Dorene reports she will be borrowing a FWW from a friend for recovery. PRIMARY CARE PHYSICIAN:: Ying Villaseñor. POTENTIAL DISCHARGE NEEDS:: Follow up appointment with Dr. Morales. PATIENT/FAMILY EDUCATION NEEDS:: Review of discharge instructions, discuss Ask Me Three. ANTICIPATED BARRIERS TO DISCHARGE:: None identified. TRANSPORTATION:: Via private vehicle with his , Hao. PLAN:: Dorene will return home when ready per MD. She will follow up with Dr. Morales and her plan of care as prescribed including activity restrictions and medication recommendations. She will transport via private vehicle with her , Hao.
--- NOTE | 2018-12-06 09:50 | PT.INTREAT ---
Date of service: 12/06/18 Time of Service: 09:50 PT Notes 12/06/18 SUBJECTIVE: Dorene noting feeling lightheaded, hot and nauseated. Pain seems to be under control. After time she does feel better and would like to participate in PT. Post PT pt notes feeling significantly better. OBJECTIVE: TRANSFERS Supine to sit: I Sit to supine: I Sit to stand: I Stand to sit: I GAIT Device: FWW Weight bearing: AT R Assist: SBA Distance: 100'x2 Deviation: Step through pattern. STAIRS: 3-4 steps, 2 rails, SBA. THEREX: Review HEP for quad sets, heel slides and SLR. Review positioning to avoid pillow or towel roll under the knee. Pt has good understanding of this. ASSESSMENT: Pt tolerates functional mobility including stairs well today. She did vomit during our session but then felt significantly better afterwards. She has a good understanding of her protocol for home for the next two weeks. PLAN: Pt is cleared for safe mobility, transfers and stair management for home. Continue as per PT and MD recommendations. Treatment time: 25 minutes [id number], [id number] Monserrat Ko PTA
--- NOTE | 2018-12-06 10:21 | W.PM.DS.N ---
Date of service: 12/06/18 Time of Service: 10:22 DS: Diagnosis Discharge Diagnosis (1) Post-traumatic osteoarthritis of right knee: Status: Acute Discharge Plan Disposition Patient Disposition: HOME Condition: Good Discharge Details Reason For Visit: RT KNEE DJD Admit Date/Time: 12/05/18 08:23 Admit Provider: Aron Morales Attending Provider: Aron Morales Primary Care Provider: Ying Villaseñor [facility] Course Hospital Course: Patient was admitted to the medical/surgical floor following the procedure. It was tolerated well without any notable medical, surgical, or anesthetic complications. Mobilization began postoperatively. The fleming catheter was removed and voiding spontaneously. Vitals were stable. Physical therapy worked with the patient and was cleared for discharge home. No acute medical issues. Home Meds and New Rx's Prescriptions: New celecoxib 200 mg capsule 200 mg PO BID PRN (Reason: pain) Qty: 60 RF: 1 aspirin 81 mg tablet,delayed release (DR/EC) 81 mg PO BID Qty: 60 RF: 0 acetaminophen 500 mg tablet 1,000 mg PO Q8H PRN (Reason: pain) Qty: 90 RF: 3 gabapentin 300 mg capsule 300 mg PO QHS Qty: 7 RF: 0 oxycodone 5 mg tablet 5 mg PO Q4H Qty: 15 RF: 0 Continued mometasone [Nasonex] 17 GM spray,non-aerosol 2 spry NS DAILY PRNRF: 0 Discharge Instructions Additional Instructions: Dr. Morales?s Total Knee Discharge Instructions Activity: The most important activity is to walk. You should try to take short walks a few times a day. It is important that when resting you work on keeping the knee straight. Avoid putting a pillow behind the knee as this will encourage flexion. Work on range of motion exercises as provided by Physical Therapy. - Start outpatient physical therapy within 2 weeks. - You should wear the DONTE hose on both legs for 4 weeks. Dressing: Keep the surgical dressing in place for at least one week. After the first week it may be removed and replace with light gauze and tape or nothing. It may get wet after 3 days but avoid soaking the dressing. If it gets wet, just lightly pat dry. Medications: - You should take Tylenol and anti-inflammatory (Celebrex) as your primary pain control medications. If the Celebrex is too costly, you may take Ibuprofen 600mg every 8 hours. - You have been prescribed a stronger pain medication (Oxycodone) for breakthrough pain, take as needed as prescribed. - You will be taking Aspirin 81mg twice a day for DVT prevention unless instructed otherwise. - If you have constipation you should take Colace or Miralax (both [id number]). It takes most people 3-4 days to have a bowel movement. Follow-up: 2 weeks Stand Alone Forms: Nursing Discharge Form Referrals: Aron Morales MD [ [facility] STAFF PHYSICIAN] - Activity:: Activity as Tolerated Equipment/Supplies:: Walker Diet:: As Tolerated Discharge Orders Discharge Orders: Discharge Order (Routine); Ordered 12/06/18 Ordered By: Aron Morales DS: Data Vitals/I&O Vitals and I&O: Vital Signs Temperature 36.5 C 12/06/18 07:20 Temperature Source Tympanic 12/06/18 07:20 Pulse 63 12/06/18 07:20 Pulse Rhythm Regular 12/06/18 08:01 Respiratory Rate 14 12/06/18 07:20 Respiratory Effort 12/06/18 08:01 Respiratory Depth Normal 12/06/18 08:01 Respiratory Pattern Normal 12/06/18 08:01 Blood Pressure 144/85 H 12/06/18 07:20 Pulse Oximetry 97 12/06/18 07:20 Oxygen Delivery Method Room Air 12/06/18 07:20 Oxygen Flow Rate 0 12/06/18 07:20 Pain Level 6 12/06/18 08:01 Intake & Output 12/05/18 12/05/18 12/06/18 11:59 23:59 11:59 Intake Total 110 / 2322.667 2212.667 / 2322.667 1876.666 / 1876.666 Output Total 2200 / 2200 1500 / 1500 Balance 110 / 122.667 12.667 / 122.667 376.666 / 376.666 Weight 78.5 kg Intake: IV 110 / 0717.239 9608.667 / 1599.173 3308.666 / 1276.666 Oral 710 / 710 600 / 600 Output: Urine 2100 / 2100 1500 / 1500 Estimated Blood Loss 100 / 100 Other: Urine Color Yellow Pale Pale Urine Appearance Clear Clear Clear Comment NOT EMPTIED Emesis Description None PFSH Medical History Family history of breast cancer (Acute) Frequent PVCs (Resolved) Surgical History History of open reduction and internal fixation (ORIF) procedure (Chronic) Hx of colonoscopy (Chronic) History of breast cancer (Resolved) Social History Smoking/Tobacco Use Status: Never Alcohol Intake: current Details: ocas social Drug use: Never What type of physical activity do you participate in: walking and additional Details: gardening,4 wheeling Do you feel safe in your relationship?: Yes
--- NOTE | 2018-12-06 13:05 | PT.INDS ---
Date of service: 12/06/18 PT Notes Inpatient Physical Therapy Discharge Summary Dates: 12/06/2018 Dates of Service: 12/05/2018 [facility] 12/06/2018 This is a clinical summary of care provided on the duration of dates listed above. No charge was made in the completion of this documentation. 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 Owns her own home in her bedroom and bathroom is on a second floor, but she can convert a room or sleeping on the first floor. She has 12 steps leading to the second floor. She is a walking shower, with a seat. No flexible shower hose but she does have grab bars. Current Functional Limitations: Prior to surgery she was independent with all ADLs, including her housework, taking care of her grandchildren, working part-time, etc. Currently will require assistance with most ADLs Equipment Owned/DME: Crutches Subjective: NT Objective: General Observation: NT Mental Status: NT Pain: NT ROM: Her joint mobility is within functional limits without pain on movement other than her right knee which is 0 to 70 degrees with some mild end range drawing throughout the anterior aspect the knee with flexion. Strength: Has full motor control throughout and strength generally rated 5/5 other than her right lower extremity. She is able to form a supine straight leg raise on the right along with ankle pumping. Sensation: Intact to light touch throughout the digits of the right foot Bed Mobility/Transfers: Requires minimal assistance with her right lower extremity when assuming the supine to sitting positions and vice versa. She is independent with assuming a sitting to standing positions. Gait: Per BUILDING CUSTODIAL SUPERVISOR documentation in the morning of 12/06/2018, ambulated 100 x 2 feet with a wheeled walker and SBA with a stable gait, weightbearing as tolerated on the right lower extremity. Patient was able to tolerate up-and-down 4 inch steps x3 while holding onto both rails requiring SBA assist of BUILDING CUSTODIAL SUPERVISOR. Balance: Static Sitting: Normal Dynamic Sitting: Normal Static Standing: Good Dynamic Standing: Required mild contact guarding Assessment: Patient is a 53 year old female referred to physical therapy services with the diagnosis of status post right total knee arthroplasty. Patient presents with clinical signs and symptoms consistent with diagnosis, as demonstrated by the following impairment level findings: Minimal assistance with her bed mobility, and standby supervision with minimal contact guarding when ambulating.. Goals: Goals X1 week 1. Supine-Sit independent MET 2. Sit-Supine independent MET 3. Gait ambulation with crutches three-point gait weightbearing as tolerated for greater than 50 feet NOT MET 4. Stairs independently stairclimbing with a railing and crutches NOT MET 5. Independent with home exercise program NOT MET DISCHARGE RECOMMENDATIONS: Home TREATMENT CODE/TIME: NC
--- NOTE | 2018-12-06 13:10 | INDS_ITS ---
Date of service: 12/06/18 PT Notes Inpatient Physical Therapy Discharge Summary Dates: 12/06/2018 Dates of Service: 12/05/[address] [facility] 12/06/2018 This is a clinical summary of care provided on the duration of dates listed above. No charge was made in the completion of this documentation. 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 Owns her own home in her bedroom and bathroom is on a second floor, but she can convert a room or sleeping on the first floor. She has 12 steps leading to the second floor. She is a walking shower, with a seat. No flexible shower hose but she does have grab bars. Current Functional Limitations: Prior to surgery she was independent with all ADLs, including her housework, taking care of her grandchildren, working part- time, etc. Currently will require assistance with most ADLs Equipment Owned/DME: Crutches Subjective: NT Objective: General Observation: NT Mental Status: NT Pain: NT ROM: Her joint mobility is within functional limits without pain on movement other than her right knee which is 0 to 70 degrees with some mild end range drawing throughout the anterior aspect the knee with flexion. Strength: Has full motor control throughout and strength generally rated 5/5 other than her right lower extremity. She is able to form a supine straight leg raise on the right along with ankle pumping. Sensation: Intact to light touch throughout the digits of the right foot Bed Mobility/Transfers: Requires minimal assistance with her right lower extremity when assuming the supine to sitting positions and vice versa. She is independent with assuming a sitting to standing positions. Gait: Per ARTERIAL EMBALMER documentation in the morning of 12/06/2018, ambulated 100 x 2 feet with a wheeled walker and SBA with a stable gait, weightbearing as tolerated on the right lower extremity. Patient was able to tolerate up-and-down 4 inch steps x3 while holding onto both rails requiring SBA assist of ARTERIAL EMBALMER. Balance: Static Sitting: Normal Dynamic Sitting: Normal Static Standing: Good Dynamic Standing: Required mild contact guarding Assessment: Patient is a 53 year old female referred to physical therapy services with the diagnosis of status post right total knee arthroplasty. Patient presents with clinical signs and symptoms consistent with diagnosis, as demonstrated by the following impairment level findings: Minimal assistance with her bed mobility, and standby supervision with minimal contact guarding when ambulating.. Goals: Goals X1 week 1. Supine-Sit independent MET 2. Sit-Supine independent MET 3. Gait ambulation with crutches three-point gait weightbearing as tolerated for greater than 50 feet NOT MET 4. Stairs independently stairclimbing with a railing and crutches NOT MET 5. Independent with home exercise program NOT MET DISCHARGE RECOMMENDATIONS: Home TREATMENT CODE/TIME: NC
--- NOTE | 2018-12-06 14:19 | PDOC.CMDIS ---
LACE Index Scoring Tool - Questions: Length of Stay (in days): 1 Acuity (Admit via E.D.?): No E.D. Visits: 1 - Answers: Total Score: 2 Risk of Readmission: Low Risk Care Management Discharge Reason for Hospitalization: R Knee DJD Discharge Plan: Dorene will return home when ready per MD. She will follow up with Dr. Morales and her plan of care as prescribed including activity restrictions and medication recommendations. She will transport via private vehicle with her , Hao. Patient/Family Education Needs: Review of discharge instructions, discuss Ask Me Three.
== END 2018-12-06 13:25 | disposition home or self-care (01) | DRG 470 ==
LOC: PDS 09:21 → MS 15:03
PROVIDERS: Admitting Provider Student in an Organized Health Care Education/Training Program; PCP Family Medicine; Visit Provider Student in an Organized Health Care Education/Training Program
PROC: 0SRC0J9 Replacement of Right Knee Joint with Synthetic Substitute, Cemented, Open Approach (ICD-10-PCS; CPT 27447; principal; 2018-12-05 10:30)
DX: M17.31 Unilateral post-traumatic osteoarthritis, right knee (principal); Z96.651 Presence of right artificial knee joint; Z87.81 Personal history of (healed) traumatic fracture
CPT/HCPCS: 27447; 20985; 20680; 76942; 81025; 97110; 97162; 97530; NC; J0690; J1885; J2250

== ENCOUNTER 2018-12-20 11:00 | Outpatient (CLI) | payer MEDICAID, SELFPAY ==
--- NOTE | 2018-12-20 10:20 | DI.RAD_ITS ---
SYMPTOM/DIAGNOSIS: S/P RT TKA LEG LENGTH EXAMINATION, RIGHT KNEE: Comparison is made with 10/23/18. Since the prior examination, the patient has undergone a right total knee replacement and removal of the side plate and screws from the proximal tibia. The orthopedic hardware appears in good position. The bones appear intact. There is soft tissue swelling about the right knee and a suprapatellar joint effusion is present. The left knee is well maintained. The right lower extremity measures 85.3 cm. The left lower extremity measures 85.4 cm.
== END 2018-12-20 11:20 ==
PROVIDERS: PCP Family Medicine; Visit Provider Student in an Organized Health Care Education/Training Program
DX: M17.31 Unilateral post-traumatic osteoarthritis, right knee (principal); Z96.651 Presence of right artificial knee joint; M79.89 Other specified soft tissue disorders; M25.461 Effusion, right knee
CPT/HCPCS: 73560; 77073

== ENCOUNTER 2019-06-13 09:07 | Day surgery (SDC) | payer OTHER, SELFPAY ==
[2019-06-13 09:40] VITALS: BP 143/85; PULSE 71; RESP 17; TEMP 36.6; O2SAT 99
[2019-06-13] MEDS: Lactated Ringers 1,000 ML 80 ML IV (10:07)
--- NOTE | 2019-06-13 10:13 | W.PM.DSUDISC ---
Discharge Plan Disposition Patient Disposition: HOME Condition: Good Discharge Details Reason For Visit: Colonoscopy Attending Provider: Yolanda Chowdary Primary Care Provider: Ying Villaseñor Home Meds and New Rx's Prescriptions: Continued mometasone [Nasonex] 17 GM spray,non-aerosol 2 spry NS DAILY PRNRF: 0 acetaminophen 500 mg tablet 1,000 mg PO Q8H PRN (Reason: pain) Qty: 90 RF: 3 Discontinued polyethylene glycol 3350 17 gram/dose powder 238 g PO ONCE Qty: 238 RF: 0 bisacodyl [Dulcolax (bisacodyl)] 5 mg tablet,delayed release (DR/EC) 5 mg PO ONCE Qty: 4 RF: 0 Discharge Instructions Additional Instructions: Findings: Your colonoscopy was normal. Follow up: Plan for a colonoscopy in 5 years. Please call if you develop: fevers >101.5 Nausea or Vomiting Abdominal pain that is not transient DAY SURGERY UNIT POST COLONOSCOPY INSTRUCTIONS 1. Because there will be medication in your system for the next 24 hours, you may feel a little sleepy. Your coordination will be affected. Therefore: a. Do not drive or operate dangerous equipment for 24 hours. b. Do not drink alcohol beverages for 24 hours (not even beer). c. Plan to go home and rest for the day. 2. Generally there are no restrictions on your activity after a day or so has gone by, but you may feel a bit fatigued for a few days. 3 After you arrive home you may have a light meal and return to a normal diet as you can tolerate it without feeling sick to your stomach. 4. After surgery, you may feel pain or discomfort. This should be only transient, but if it persists please contact your doctor. 5. If there are any questions regarding the findings of your procedure, please feel free to contact your doctor. 6. If you are unable to contact your doctor with a problem, contact the hospital at [phone]. 7. Continue all your regular medications unless directed otherwise. I understand the above instructions and have no questions. Signature of Patient or Responsible Adult Escort Date/Time Name of Responsible Adult Escort Signature of Nurse Date/Time Activity:: Activity as Tolerated Diet:: As Tolerated Discharge Orders Discharge Orders: Discharge Order (Routine); Ordered 06/13/19 Ordered By: Yolanda Chowdary DS: Diagnosis Discharge Diagnosis (1) Family history of rectal cancer: Status: Acute
[2019-06-13 11:33] VITALS: BP 157/97; PULSE 68; RESP 18; TEMP 36.3; O2SAT 100
--- NOTE | 2019-06-13 12:42 | COLE_ITS ---
DATE OF PROCEDURE: June 13, 2019 PREOPERATIVE DIAGNOSIS: Family history of rectal cancer. POSTOPERATIVE DIAGNOSIS: Normal colon. PROCEDURE: Colonoscopy. SURGEON: Yolanda Chowdary M.D. ANESTHESIA: General. INDICATIONS: This is a 54-year-old woman whose father was treated for rectal cancer. She presents f or a routine colon evaluation. She is asymptomatic. Her last procedure was in 2013. PROCEDURE: She was placed in the left Palacio position. Propofol was titrated to sedation. Digital re ctal examination revealed no abnormalities. The scope was advanced to the cecum without difficulty. The ileocecal valve and appendiceal orifice were clearly identified. Her prep was excellent. The s cope was slowly withdrawn with no abnormalities seen within the ascending, transverse, descending or sigmoid colon or rectum, including on retroflex view. She tolerated the procedure well and was stabl e to recovery. She will need a follow-up colonoscopy again in five years with her family history. cc: Ying Villaseñor M.D.
== END 2019-06-13 12:10 | disposition home or self-care (01) ==
PROVIDERS: PCP Family Medicine; Visit Provider Surgery
PROC: 0DJD8ZZ Inspection of Lower Intestinal Tract, Via Natural or Artificial Opening Endoscopic (ICD-10-PCS; CPT 45378; principal; 2019-06-13 10:15)
DX: Z12.11 Encounter for screening for malignant neoplasm of colon (principal); Z80.0 Family history of malignant neoplasm of digestive organs
CPT/HCPCS: G0105

== ENCOUNTER 2020-04-09 04:48 | Outpatient (CLI) | payer OTHER, SELFPAY ==
--- NOTE | 2020-04-09 | DI.MAMMO_ITS ---
EXAM: MAMMO SCREENING CLINICAL HISTORY: SCREENING, Z12.31 TECHNIQUE: Mammograms were interpreted according to the usual protocol including computer analysis w [employer] CAD system, tomosynthesis and C-view imaging. COMPARISON: 2010 through 2017 FINDINGS: The breasts are composed of scattered fibroglandular densities, Breast Density category B. No suspicious masses or suspicious microcalcifications are seen. No skin thickening or abnormal axillary lymph nodes are seen. There has been no significant change from prior exams. IMPRESSION: BI-RADS Category 1, Negative mammogram Yearly screening mammography is recommended. Breast Density - Category B, scattered fibroglandular densities. A negative radiographic report should not delay biopsy if a dominant or clinically suspicious mass is present. Up to ten percent of cancers are not identified on mammography. A negative report may reinforce clinical impression. Adenosis and dense breasts may obscure an underlying neoplasm. False positive reports average 6 to 10%. Patient will receive a letter notifying them of these results.
== END 2020-04-09 05:08 ==
PROVIDERS: PCP Family Medicine; Visit Provider Family Medicine
DX: Z12.31 Encounter for screening mammogram for malignant neoplasm of breast (principal)
CPT/HCPCS: 77063; 77067

== ENCOUNTER 2020-11-12 14:36 | Outpatient (REF) | payer OTHER, SELFPAY ==
--- NOTE | 2020-11-12 13:45 | PAPFT_PTH ---
PATIENT: Dorene Yarbrough LOC: [facility]#:[id number] AGE/SX: 55/F ROOM: RE11/12/[address]: Ying Villaseñor : 1965 BED: DIS: 11/12/2020 SPEC #: [id number] RECD: 11/12/20 17:03 STATUS: STEVEN REAllie #: [id number] PERNELL: 11/12/20 13:[address]: Ying Villaseñor DEPT: [facility] Cytology RECD BY: Connie Irvin Tissues: 1 - CX/ENDOCX FOR PAP SMEARS Procedures: PAP THIN PREP/UVM Screening HPV DNA PROBE Comments: [id number]
== END 2020-11-12 14:37 | disposition home or self-care (01) ==
LOC: NCHCN 14:36
PROVIDERS: PCP Family Medicine; Visit Provider Family Medicine
DX: Z00.00 Encounter for general adult medical examination without abnormal findings (principal); Z12.4 Encounter for screening for malignant neoplasm of cervix; Z11.51 Encounter for screening for human papillomavirus (HPV)
CPT/HCPCS: 88142; 87624

== ENCOUNTER 2021-04-28 01:41 | Outpatient (CLI) | payer OTHER, SELFPAY ==
--- NOTE | 2021-04-28 | DI.MAMMO_ITS ---
Exam(s) MAMMO SCREENING EXAM: MAMMO SCREENING CLINICAL HISTORY: SCREENING, Z12.31. TECHNIQUE: Bilateral full field digital CC and MLO mammographic images were obtained with 3D tomosyn thesis and utilizing computer aided detection (CAD). COMPARISON: Prior mammograms dating back to 2011, the most recent being April 2020. Significant family history. Mother diagnosed with breast cancer. FINDINGS: There are no new spiculated masses nor malignant appearing microcalcification groups. There is no significant architectural distortion nor skin thickening-retraction. IMPRESSION: No radiographic evidence of malignancy. BI-RADS Category 1 - Negative Breast Density - Category B - Scattered areas of fibroglandular density Breast density Category C or D implies that the patient has dense breast tissue. Dense breast tissue can make it harder to find cancer on a mammogram. Dense breast tissue is also associated with an incr eased risk of breast cancer. This information about the result of the mammogram report was provided to the patient to raise their awareness. Use this report when you speak with the patient about their risks for breast cancer, which includes their family history. At that time, you may recommend additional screening tests (Ultrasoun d or MRI) as these tests may add significant information. A negative radiographic report should not delay biopsy if a dominant or clinically suspicious mass is present. Up to ten percent of cancers are not identified on mammography. A negative report may reinforce clinical impression. Adenosis and dense breasts may obscure an underlying neoplasm. False positive reports average 6 to 10%. Patient will receive a letter notifying them of these results.
== END 2021-04-28 02:01 ==
PROVIDERS: PCP Family Medicine; Visit Provider Family Medicine
DX: Z12.31 Encounter for screening mammogram for malignant neoplasm of breast (principal)
CPT/HCPCS: 77063; 77067

== ENCOUNTER 2021-11-14 18:22 | Outpatient (REF) | payer OTHER, SELFPAY ==
[2021-11-14 21:51] LABS: Calculated LDL 119 mg/dL (<100); Cholesterol 251 mg/dL (<200); HDL Cholesterol 118 mg/dL (40-60); Triglyceride 74 mg/dL (<150)
[2021-11-14 21:53] LABS: Hemoglobin A1C 5.3 % (<5.7)
== END 2021-11-14 18:23 | disposition home or self-care (01) ==
LOC: NCHCN 18:22
PROVIDERS: PCP Family Medicine; Visit Provider Family Medicine
DX: Z00.00 Encounter for general adult medical examination without abnormal findings (principal); E66.3 Overweight; Z13.1 Encounter for screening for diabetes mellitus; Z13.220 Encounter for screening for lipoid disorders
CPT/HCPCS: 80061; 83036

== ENCOUNTER → 2022-05-01 01:50 | Outpatient (CLI) | payer OTHER, SELFPAY ==
--- NOTE | 2022-05-01 11:45 | DI.MAMMO_ITS ---
Exam(s) MAMMO SCREENING EXAM: MAMMO SCREENING CLINICAL HISTORY: SCREENING, Z12.31; FAMILY H/O BREAST CA, Z80.3 TECHNIQUE: Mammograms were interpreted according to the usual protocol including computer analysis w [employer] CAD system, tomosynthesis and C-view imaging. COMPARISON: 2011 through 2020 FINDINGS: The breasts are composed of scattered fibroglandular densities, Breast Density category B. No suspicious masses or suspicious microcalcifications are seen. No skin thickening or abnormal axillary lymph nodes are seen. There has been no significant change from prior exams. Nipple jewelry noted bilaterally. IMPRESSION: BI-RADS Category 1, Negative mammogram Yearly screening mammography is recommended. Breast Density - Category B, scattered fibroglandular densities. A negative radiographic report should not delay biopsy if a dominant or clinically suspicious mass is present. Up to ten percent of cancers are not identified on mammography. A negative report may reinforce clinical impression. Adenosis and dense breasts may obscure an underlying neoplasm. False positive reports average 6 to 10%. Patient will receive a letter notifying them of these results.
== END ==
PROVIDERS: PCP Family Medicine; Visit Provider Family Medicine
DX: Z12.31 Encounter for screening mammogram for malignant neoplasm of breast (principal); Z80.3 Family history of malignant neoplasm of breast
CPT/HCPCS: 77063; 77067

== ENCOUNTER → 2023-05-03 02:17 | Outpatient (CLI) | payer MEDICAID, SELFPAY ==
--- NOTE | 2023-05-03 08:33 | DI.MAMMO_ITS ---
Exam(s) MAMMO SCREENING EXAM: MAMMO SCREENING CLINICAL HISTORY: SCREENING, Z12.31 TECHNIQUE: Mammograms were interpreted according to the usual protocol including computer analysis w [employer] CAD system, tomosynthesis and C-view imaging. COMPARISON: 2013 through 2021 FINDINGS: The breasts are composed of scattered fibroglandular densities, Breast Density category B. No suspicious masses or suspicious microcalcifications are seen. No skin thickening or abnormal axillary lymph nodes are seen. There has been no significant change from prior exams. IMPRESSION: BI-RADS Category 1, Negative mammogram Yearly screening mammography is recommended. Breast Density - Category B, scattered fibroglandular densities. A negative radiographic report should not delay biopsy if a dominant or clinically suspicious mass is present. Up to ten percent of cancers are not identified on mammography. A negative report may reinforce clinical impression. Adenosis and dense breasts may obscure an underlying neoplasm. False positive reports average 6 to 10%. Patient will receive a letter notifying them of these results.
== END ==
PROVIDERS: PCP Family Medicine; Visit Provider Family Medicine
DX: Z12.31 Encounter for screening mammogram for malignant neoplasm of breast (principal)
CPT/HCPCS: 77063; 77067

== ENCOUNTER 2024-05-05 01:08 | Outpatient (CLI) | payer MEDICAID, SELFPAY ==
--- NOTE | 2024-05-05 | DI.MAMMO_ITS ---
Exam(s) MAMMO SCREENING EXAM: MAMMO SCREENING CLINICAL HISTORY: SCREENING MAMMO Z12.39 TECHNIQUE: Mammograms were interpreted according to the usual protocol including computer analysis w [employer] CAD system, tomosynthesis and C-view imaging. COMPARISON: 2014 through 2022 FINDINGS: The breasts are composed of scattered fibroglandular densities, Breast Density category B. No suspicious masses or suspicious microcalcifications are seen. No skin thickening or abnormal axillary lymph nodes are seen. There has been no significant change from prior exams. IMPRESSION: BI-RADS Category 1, Negative mammogram Yearly screening mammography is recommended. Breast Density - Category B, scattered fibroglandular densities. A negative radiographic report should not delay biopsy if a dominant or clinically suspicious mass is present. Up to ten percent of cancers are not identified on mammography. A negative report may reinforce clinical impression. Adenosis and dense breasts may obscure an underlying neoplasm. False positive reports average 6 to 10%. Patient will receive a letter notifying them of these results.
== END 2024-05-05 01:28 ==
LOC: DI 01:08
PROVIDERS: PCP Family Medicine; Visit Provider Family Medicine
DX: Z12.31 Encounter for screening mammogram for malignant neoplasm of breast (principal); R92.323 Mammographic fibroglandular density, bilateral breasts
CPT/HCPCS: 77063; 77067

== ENCOUNTER 2025-01-21 08:30 | Outpatient (CLI) | payer MEDICAID, SELFPAY ==
--- NOTE | 2025-01-21 08:15 | DI.RAD_ITS ---
Exam(s) XR SHOULDER RT COMPLETE 2+V EXAM: XR SHOULDER RT COMPLETE 2+V CLINICAL HISTORY: F/U FRACTURE. TECHNIQUE: 2D digital imaging was performed of the right shoulder. Two images were obtained. Y and Grashey views were obtained. COMPARISON: CR XR SHOULDER MIN 2V RT from 01/10/2025 FINDINGS: BONES: There does not appear to be any significant change in alignment of the comminuted fracture involving the proximal right humerus. The fracture involves the surgical neck with extension into a component of the greater tuberosity. The fracture is mildly impacted. No bony destructive lesion is seen. JOINTS: No dislocation present. SOFT TISSUE: Normal. IMPRESSION: Stable alignment of the proximal right humeral fracture. DATA REPOSITORY: RADIATION DOSE DELIVERED:
== END 2025-01-21 08:31 | disposition home or self-care (01) ==
LOC: DIORS 08:30
PROVIDERS: PCP Family Medicine; Visit Provider Student in an Organized Health Care Education/Training Program
DX: S42.201A Unspecified fracture of upper end of right humerus, initial encounter for closed fracture (principal)
CPT/HCPCS: 73030

== ENCOUNTER 2025-02-18 09:17 | Outpatient (CLI) | payer MEDICAID, SELFPAY ==
--- NOTE | 2025-02-18 08:30 | DI.RAD_ITS ---
Exam(s) XR SHOULDER RT COMPLETE 2+V EXAM: XR SHOULDER RT COMPLETE 2+V CLINICAL HISTORY: F/U FRACTURE. TECHNIQUE: 2D digital imaging was performed of the right shoulder. Two images were obtained. Grashey and Y views were obtained. COMPARISON: CR XR SHOULDER RT COMPLETE 2+V from 01/21/2025 FINDINGS: BONES: There has been no change in alignment of the fracture involving the proximal humerus compared to 01/21/2025. Callus formation has developed about the fracture suggesting some interval healing. No bony destructive lesion is seen. JOINTS: No dislocation present. There are degenerative changes seen at both the acromioclavicular and glenohumeral joints. SOFT TISSUE: Normal. IMPRESSION: Stable alignment of the healing right proximal humeral fracture. DATA REPOSITORY: RADIATION DOSE DELIVERED:
== END 2025-02-18 09:18 | disposition home or self-care (01) ==
LOC: DIORS 09:18
PROVIDERS: PCP Family Medicine; Visit Provider Student in an Organized Health Care Education/Training Program
DX: S42.201A Unspecified fracture of upper end of right humerus, initial encounter for closed fracture (principal)
CPT/HCPCS: 73030

== ENCOUNTER 2025-04-01 13:12 | Outpatient (CLI) | payer MEDICAID, SELFPAY ==
--- NOTE | 2025-04-01 08:30 | DI.RAD_ITS ---
Exam(s) XR SHOULDER RT COMPLETE 2+V EXAM: XR SHOULDER RT COMPLETE 2+V CLINICAL HISTORY: F/U FRACTURE. TECHNIQUE: 2D digital imaging was performed of the right shoulder. Two images were obtained. Grashey and Y views were obtained. COMPARISON: CR XR SHOULDER RT COMPLETE 2+V from 02/18/2025 FINDINGS: BONES: The proximal right humeral fracture appears healed. There is no acute fracture present. No bony destructive lesion is seen. JOINTS: No dislocation present. There are mild degenerative changes at the acromioclavicular joint. The glenohumeral joint is well maintained. SOFT TISSUE: Normal. IMPRESSION: Healed proximal right humeral fracture. DATA REPOSITORY: RADIATION DOSE DELIVERED:
== END 2025-04-01 13:13 | disposition home or self-care (01) ==
LOC: DIORS 13:12
PROVIDERS: PCP Family Medicine; Visit Provider Student in an Organized Health Care Education/Training Program
DX: S42.201A Unspecified fracture of upper end of right humerus, initial encounter for closed fracture (principal)
CPT/HCPCS: 73030

== ENCOUNTER 2025-05-07 03:57 | Outpatient (CLI) | payer MEDICAID, SELFPAY ==
--- NOTE | 2025-05-07 10:15 | DI.MAMMO_ITS ---
Exam(s) MAMMO SCREENING EXAM: MAMMO SCREENING CLINICAL HISTORY: SCREENING MAMMO Z12.31. TECHNIQUE: Bilateral full field digital CC and MLO mammographic images were obtained with 3D tomosynthesis and utilizing computer aided detection (CAD). COMPARISON: Prior mammograms were reviewed. FINDINGS: There has been no significant change in the appearance and distribution of the fibroglandular tissue. There are no new spiculated masses nor malignant appearing microcalcification groups. There is no significant architectural distortion nor skin thickening-retraction. IMPRESSION: No radiographic evidence of malignancy. BI-RADS Category 1 - Negative Breast Density - Category B - There are scattered areas of fibroglandular density. Breast density Category C or D implies that the patient has dense breast tissue. Dense breast tissue can make it harder to find cancer on a mammogram. Dense breast tissue is also associated with an increased risk of breast cancer. This information about the result of the mammogram report was provided to the patient to raise their awareness. Use this report when you speak with the patient about their risks for breast cancer, which includes their family history. At that time, you may recommend additional screening tests (Ultrasound or MRI) as these tests may add significant information. A negative radiographic report should not delay biopsy if a dominant or clinically suspicious mass is present. Up to ten percent of cancers are not identified on mammography. A negative report may reinforce clinical impression. Adenosis and dense breasts may obscure an underlying neoplasm. False positive reports average 6 to 10%. Patient will receive a letter notifying them of these results.
== END 2025-05-07 04:17 ==
LOC: DI 03:57
PROVIDERS: PCP Family Medicine; Visit Provider Family Medicine
DX: Z12.31 Encounter for screening mammogram for malignant neoplasm of breast (principal); R92.323 Mammographic fibroglandular density, bilateral breasts
CPT/HCPCS: 77063; 77067

== ENCOUNTER 2025-05-21 11:28 | Day surgery (SDC) | payer MEDICAID, SELFPAY ==
--- NOTE | 2025-05-20 17:53 | W.ANESPRE ---
General Info Date of Service Date Performed: 05/21/25 Height: 5 ft 4 in Weight: 61.689 kg Body Mass Index (BMI): 23.3 Surgical Procedure: Operation Date: 05/21/25 13:05 Proposed Procedure Side Surgeon p Colonoscopy Amparo Prado MD Meds Allergies and Home Medications Allergies Allergy/AdvReac Type Severity Reaction Status Date / Time No Known Allergies Allergy Verified 05/21/25 11:52 Home Medication Medication Instructions Recorded bisacodyl 5 mg tablet,delayed 5 mg PO ONCE #4 tabs 05/07/25 release (Dulcolax (bisacodyl)) polyethylene glycol 3350 17 17 g PO ONCE #238 grams 05/07/25 gram/dose oral powder Current Visit Medications: Current Medications Generic Name Dose Route Start Last Admin Trade Name Freq PRN Reason Stop Dose Admin Ringer's Solution 1,000 mls @ 80 mls/hr 05/21/25 06:00 IV 05/21/25 23:59 INFUSION ERICA IV Miscellaneous Supplies 1 each 05/21/25 06:00 Iv Access IV 05/21/25 23:59 DIRECTED ERICA Sodium Biphosphate/Sodium Phosphate 133 ml 05/21/25 06:00 Na Phosphate Enema-Adult 133 Ml Btl NV 05/21/25 23:59 DIRECTED PRN Sodium Chloride 0 ml 05/21/25 06:00 Normal Saline Flush 10 Ml Syr IV 05/21/25 23:59 PRN PRN Sodium Chloride 0 ml 05/21/25 06:00 Normal Saline 10 Ml Vial IJ 05/21/25 23:59 DIRECTED PRN Sterile Water 0 ml 05/21/25 06:00 Water,Injection,Sterile 10 Ml Vial IJ 05/21/25 23:59 DIRECTED PRN PFSH Active Problems Active Problems: Problem Status Onset Code Closed fracture of right proximal humerus Acute ~01/12/25 S42.201A Family history of rectal cancer Acute Z80.0 History of total right knee replacement Chronic 12/05/18 Z96.651 Medical History Medical History Frequent PVCs Family history of breast cancer Surgical History Surgical History Hx of colonoscopy History of open reduction and internal fixation (ORIF) procedure Tibial plateau fracture January 2000 fixed via ORIF w/ plate and screws in [place]. History of breast cancer mother Tobacco Smoking/Tobacco Use Status: Never Alcohol Alcohol Intake: current Alcohol intake frequency: a few times a month Alcohol type: beer and wine Details: ocas social Substance Use Substance use: Never Substance use type: does not use Vital Signs and Lab Results Vital Signs Comment Vital Signs Comment:: Temp Pulse Resp BP Pulse Ox 36.2 C L 86 16 142/73 H 96 05/21/25 11:52 05/21/25 11:52 05/21/25 11:52 05/21/25 11:52 05/21/25 11:52 Anesthesia Assessment and Plan Anesthesia History Personal History: No History of Anesthesia Complications Family History: No Family History of Anesthesia Complications Exercise Tolerance Exercise Tolerance: Metabolic Equivalents>4 Pertinent Negatives Pertinent Negatives: No Symptoms of GERD, No Major Cardiovascular Symptoms or Complaints, No Major Pulmonary Symptoms or Complaints and No History of CVA/TIA Cardiac & Pulmonary Exam Cardiac Exam: Normal S1/S2 Heart Sounds Pulmonary Exam: Clear Bilateral Breath Sounds Implantable Cardiac Device Does patient have a Pacemaker or an ICD?: No Airway Exam Known Difficult Airway: No Mallampati Class: 1 Mouth Opening: Normal (> 3cm) Thyromental Distance: Greater than 3 cm Neck Range of Motion: Full ROM Neck Circumference: Normal Teeth Condition: Normal Dentition ASA Classification ASA Score: ASA 2 Emergency Case?: No NPO Status NPO Status: NPO Clears >2 hours, Solids >8 hours Anesthesia Plan Resuscitation Status: Full Code Anesthesia Technique: General Anesthesia Airway Planned: Natural Airway Monitors Used: Standard Monitors Preoperative Comments:: 60 y/o female presents for colonoscopy screening pre-op. Her last colonoscopy was in 2019, which was unremarkable. She has a family history of colon cancer in her father. She denies any changes in bowel habits including bloody or black tarry stools, abdominal pain, diarrhea or constipation. She denies constitutional symptoms. She denies chest pain, palpitations, dyspnea or dyspnea with exertion. She denies prior history or family history of adverse reactions or complications with anesthesia. The patient denies any history of stroke, LA, seizures, bleeding or clotting disorders. She has metal implanted in her right knee.
[2025-05-21 11:52] VITALS: BP 142/73; PULSE 86; RESP 16; TEMP 36.2; O2SAT 96
[2025-05-21] MEDS: Lactated Ringers 1,000 ML 80 ML IV (12:03)
[2025-05-21 13:28] VITALS: BMI 23.3
--- NOTE | 2025-05-21 13:53 | W.PM.DSUDISC ---
Date of service: 05/21/25 Discharge Plan Disposition Patient Disposition: Home Condition: Stable Discharge Details Reason For Visit: screening colonoscopy Attending Provider: Amparo Prado Primary Care Provider: Ying Villaseñor Home Meds and New Rx's Prescriptions: Discontinued bisacodyl [Dulcolax (bisacodyl)] 5 mg tablet,delayed release (DR/EC) 5 mg PO ONCE Qty: 4 0RF Rx Instructions: Take per colonoscopy instructions provided by ordering providers office polyethylene glycol 3350 17 gram/dose powder 17 g PO ONCE Qty: 238 0RF Rx Instructions: Take per colonoscopy instructions provided by ordering providers office Discharge Instructions Additional Instructions: Normal colonoscopy, zero polyps or abnormalities seen today. Next screening colonoscopy due in 5 years due to family history. Stand Alone Forms: Anesthesia Discharge Inst., Colonoscopy Post Instructions, Press [place] (DSU), Portal Information Activity:: Activity as Tolerated Diet:: As Tolerated Discharge Orders Discharge Orders: Discharge Order (Routine); Ordered 05/21/25 Ordered By: Amparo Prado DS: Diagnosis Discharge Diagnosis (1) Family history of rectal cancer: Status: Acute (2) Encounter for colonoscopy in patient with family history of colon cancer: Status: Acute
[2025-05-21 13:56] VITALS: BP 109/72; PULSE 95; RESP 16; TEMP 36.2; O2SAT 100
--- NOTE | 2025-05-21 13:57 | W.COLOREPORT ---
Date of service: 05/21/25 Time of Service: 13:57 Colonoscopy Report Date of procedure: 05/21/25 Pre-op diagnosis general: Screening for colorectal cancer, family history rectal cancer in father Post-op diagnosis procedure note: same Procedure: Colonoscopy Surgeon: Amparo Prado Anesthesia Type: General:No Airway Estimated blood loss (mL): 0 Pathology: none sent Complications: None Indications: screening for colorectal cancer Prep: Miralax/Dulcolax (good) Procedure Description: Informed consent was obtained and the patient was taken to the procedure area. The patient was placed in left lateral decubitus position on the procedure table. Timeout was performed. Anesthesia was induced. A lubricated colonoscope was inserted through the anus and passed to the cecum. The cecum was identified by the ileocecal valve and the appendiceal orifice. The scope was then slowly withdrawn and the colonic and rectal mucosa examined. There are no colon or rectal mass lesions, polyps, AVMs. There is no inflammatory change. No diverticulosis was seen. The scope was retroflexed in the anorectal junction examined. Uncomplicated internal hemorrhoids present. Assessment and plan: High risk screening for colorectal cancer due to family history normal colon and rectum. Normal colonoscopy. Next screening colonoscopy will be due in 5 years due to familt history in father.
--- NOTE | 2025-05-21 14:14 | W.ANESPOSTOP ---
Postoperative Evaluation Date, Time and Location Date Performed: 05/21/25 Time Performed: 13:57 Patient Location: Day [facility] Unit Vital Signs Most Recent Imported Vital Signs: Most Recent Vital Signs Temp Pulse Resp BP Pulse Ox 36.2 C L 95 H 16 109/72 100 05/21/25 13:56 05/21/25 13:56 05/21/25 13:56 05/21/25 13:56 05/21/25 13:56 Pain Score Most Recent Pain Score: Most Recent Pain Score Pain Level 0 05/21/25 13:56 Assessment Mental Status: Awake (Alert & Oriented to Patient Baseline) Airway and Respiratory Function: Patent airway with normal (patient baseline) respiratory exam Cardiovascular Function: Hemodynamically Stable Hydration Status: Adequately Hydrated Nausea & Vomiting: No Nausea or Vomiting Pain: Pt. Denies Any Pain Peripheral Nerve Block: Patient did not receive a nerve block
[2025-05-21 14:25] VITALS: BP 134/73; PULSE 73; RESP 14; TEMP 36.3; O2SAT 98
== END 2025-05-21 14:26 | disposition home or self-care (01) ==
PROVIDERS: PCP Family Medicine; Visit Provider Surgery
PROC: 0DJD8ZZ Inspection of Lower Intestinal Tract, Via Natural or Artificial Opening Endoscopic (ICD-10-PCS; CPT 45378; principal; 2025-05-21 13:00)
DX: Z12.11 Encounter for screening for malignant neoplasm of colon (principal); Z80.0 Family history of malignant neoplasm of digestive organs
CPT/HCPCS: 45378; J2003; J2704